=== PATIENT | male | born 1950 | race Caucasian/White ===

== ENCOUNTER 2016-09-05 07:17 | Day surgery (SDC) | payer BC ==
[2016-09-05] MEDS ORDERED: NS 500 ML IV 500 ML IV ONE (07:57)
[2016-09-05] MEDS ORDERED: TETRACAINE 0.5% OPHTH 1 DOSE AFFEYE ONE ×5 (08:05→09:56)
[2016-09-05] MEDS ORDERED: VIGAMOX 0.5% OPHTH 1 DOSE AFFEYE ONE ×5 (08:10→10:09)
[2016-09-05] MEDS ORDERED: ALPHAGAN-P OPHTH 1 DOSE AFFEYE ONE (08:22)
[2016-09-05] MEDS ORDERED: PROLENSA OPHTH 1 DOSE AFFEYE ONE (08:24)
[2016-09-05] MEDS ORDERED: CYCLOGYL 1% OPHTH 1 DOSE OP ONE ×3 (08:25→08:28)
[2016-09-05] MEDS ORDERED: AK-DILATE 2.5% OPHTH 1 DOSE OP ONE ×3 (08:26→08:28)
[2016-09-05] MEDS ORDERED: MYDRIACIL OPHTH 1 DOSE AFFEYE ONE ×3 (08:26→08:28)
[2016-09-05] MEDS ORDERED: VERSED ONE (08:47)
[2016-09-05] MEDS ORDERED: VERSED IVP ONE ×2 (09:23→09:25)
[2016-09-05] MEDS ORDERED: AK-DILATE 10% OPHTH 1 DOSE AFFEYE ONE (09:28)
[2016-09-05] MEDS ORDERED: BETADINE OPHTH SOLN 5% EACHEYE ONE (09:45)
[2016-09-05] MEDS ORDERED: ADRENALINE CHL INJ IJ ONE (09:56)
[2016-09-05] MEDS ORDERED: XYLOCAINE-MPF 1% IJ ONE (09:56)
[2016-09-05] MEDS ORDERED: DUOVISC IO ONE (09:56)
[2016-09-05] MEDS ORDERED: BSS OPHTH (PLAIN) 500 ML with VANCOMYCIN HCL 500 MG VIAL 25 MG, ADRENALINE CHL INJ 1 MG IR ONE ×3 (09:56)
[2016-09-05 10:53] VITALS: BP 110/72
== END 2016-09-05 10:35 | disposition home or self-care (01) ==
LOC: SURG1 07:17
PROVIDERS: ATTEND Ophthalmology
PROC: 08RJ3JZ Replacement of Right Lens with Synthetic Substitute, Percutaneous Approach (ICD-10-PCS; principal; 2016-09-05 12:00)
PROC: 08DJ3ZZ Extraction of Right Lens, Percutaneous Approach (ICD-10-PCS; principal; 2016-09-05 12:00)
DX: H25.11 Age-related nuclear cataract, right eye (principal); H52.221 Regular astigmatism, right eye
CPT/HCPCS: A4217; J0170; J2250; J3370